=== PATIENT | female | born 1955 | race Caucasian/White ===

== ENCOUNTER 2017-08-04 10:31 | Emergency (ER) | payer BC ==
[2017-08-04] MEDS ORDERED: Acetaminophen 500 MG TAB ONE (11:15)
[2017-08-04 11:24] LABS: Hemoglobin 13.8 g/dL (12.0-16.0); Mean Corpuscular HGB CONC 34.2 g/dL (32.0-36.0); Mean Corpuscular Hemoglobin 29.9 pg (27.0-31.0); Mean Corpuscular Volume 87.3 fl (81.0-99.0); Mean Platelet Volume 8.5 fL (7.4-10.4); Platelet Count 201 thou/uL (130-400); RBC Distribution Width 10.5 % (11.5-14.5); White Blood Cell (WBC) Count 20.3 thou/uL (4.8-10.8)
[2017-08-04 11:31] LABS: CRP (Inflammatory) 2.23 mg/dL (= or < 0.5)
[2017-08-04 11:33] LABS: ALT (SGPT) 35 U/L (8-55); AST (SGOT) 39 U/L (5-34); Albumin 4.1 g/dL (3.5-5.0); Alkaline Phosphatase 77 U/L (40-150); Anion Gap 16 mmol/L (10-20); BUN (Urea Nitrogen) 13 mg/dL (9.8-20.1); Bilirubin, Total 0.9 mg/dL (0.2-1.2); CK (CPK) 42 U/L (29-168); Calc. Creatinine Clearance 0 mL/min (70-130); Calcium 9.2 mg/dL (7.8-10.44); Carbon Dioxide 21 mmol/L (22-29); Chloride 106 mmol/L (98-107); Estimated GFR-MDRD 61; Glucose 183 mg/dL (70-105); Lipase 25 U/L (8-78); Potassium 4.3 mmol/L (3.5-5.1); Protein, Total 7.1 g/dL (6.0-8.3); Sodium 139 mmol/L (136-145)
[2017-08-04 11:42] LABS: Band 13 % (5-11); Lymphocytes 5 % (21-51); MDiff Complete? YES; Monocytes 5 % (0-10); Neutrophil 77 % (42-75); PLT Morphology Comment Appears Adequate; RBC Morphology Normal; Toxic Granulation SLIGHT
--- NOTE | 2017-08-04 12:50 | ULT ---
LEFT LOWER EXTREMITY VENOUS DUPLEX ULTRASOUND INCLUDING COLOR AND SPECTRAL DOPPLER IMAGING: HISTORY: A 61-year-old female with left thigh and groin pain. FINDINGS: Exam performed from groin to ankle including visualized greater saphenous, common femoral, superficia l femoral, profunda femoral, popliteal, trifurcation, and posterior tibial vein regions. There is ph asic flow at all levels with normal compressibility and normal augmentation. No intraluminal thrombu s. There are several left groin lymph nodes up to 1 x 2.8 cm. IMPRESSION: No evidence for deep venous thrombosis. POS: [facility] [place]
--- NOTE | 2017-08-04 13:02 | RAD ---
CHEST PA AND LATERAL 2 VIEWS: Date: 08/04/17 HISTORY: 61-year-old female with headache, rhinorrhea, chills, nausea, and lower extremity pain. COMPARISON: 06/26/16. FINDINGS: Heart size is within normal limits. The lungs are clear. No pneumonia, edema, pleural effusion, or ot her acute intrathoracic disease. IMPRESSION: No acute intrathoracic disease. POS: [facility]
[2017-08-04 13:27] LABS: Bilirubin Negative (Negative); Blood, Urine Negative (Negative); Clarity Clear (Clear); Glucose, Urine (Dipstick) Negative (Negative); Leukocyte Moderate (Negative); Nitrite Negative (Negative); Protein, Urine (Dipstick) Negative (Neg-Trace); Urobilinogen 0.2 mg/dL (0.2-1.0); pH, Urine 5.5 (5.0-9.0)
[2017-08-04 13:28] LABS: Specific Gravity, Urine 1.009 (1.002-1.036)
[2017-08-04 13:37] LABS: Bacteria/HPF None Seen HPF (None Seen); RBC/HPF 0-3 HPF (0-3); Squamous Epithelial 0-3 HPF (0-3); WBC/HPF 0-3 HPF (0-3)
[2017-08-04] MEDS ORDERED: Doxycycline Hyclate 100 MG TAB ONE (13:53)
== END 2017-08-04 14:20 | disposition home or self-care (01) ==
LOC: SCSER 10:31
DX: L98.9 Disorder of the skin and subcutaneous tissue, unspecified (principal); R59.1 Generalized enlarged lymph nodes; E11.9 Type 2 diabetes mellitus without complications
CPT/HCPCS: 71046; 80053; 81003; 81015; 82150; 82550; 83605; 83690; 85025; 85652; 86140; 87040; 96360; 96361